=== PATIENT | male | born 1945 | race Caucasian/White ===

== ENCOUNTER → 2017-01-03 | Outpatient (CLI) | payer OTHER | LOC: BMCIMAGING 07:12 | PROVIDERS: ATTEND Radiology Diagnostic Radiology | DX: I65.23 Occlusion and stenosis of bilateral carotid arteries (principal); I10 Essential (primary) hypertension ==

== ENCOUNTER → 2017-02-07 | Outpatient (CLI) | payer OTHER | LOC: BMCIMAGING 14:38 | PROVIDERS: ATTEND Nurse Practitioner Adult Health | DX: J32.0 Chronic maxillary sinusitis (principal); R05 Cough; R09.81 Nasal congestion ==

== ENCOUNTER → 2018-11-08 | Outpatient (CLI) | payer OTHER | LOC: BMCIMAGING 14:14 ==